=== PATIENT | female | born 1950 | race Two or more races ===

== ENCOUNTER 2017-09-08 07:49 | Outpatient (CLI) | payer OTHER | END 2017-09-08 07:54 | disposition home or self-care (01) | LOC: MAMO-SONO 07:49 | DX: Z12.31 Encounter for screening mammogram for malignant neoplasm of breast (principal); N60.11 Diffuse cystic mastopathy of right breast; N60.12 Diffuse cystic mastopathy of left breast; N60.19 Diffuse cystic mastopathy of unspecified breast ==

== ENCOUNTER 2023-06-10 13:18 | Outpatient (CLI) | payer OTHER | END 2023-06-10 13:19 | disposition home or self-care (01) | LOC: NUCLEAR 13:18 | DX: Z00.8 Encounter for other general examination (principal); M81.0 Age-related osteoporosis without current pathological fracture; E78.2 Mixed hyperlipidemia ==